=== PATIENT | female | born 1975 | race Hispanic/Latino ===

== ENCOUNTER → 2021-05-02 | Outpatient (CLI) | payer OTHER | END | disposition home or self-care (01) | LOC: SHCH 14:40 | PROVIDERS: ATTEND Internal Medicine Cardiovascular Disease | DX: R00.2 Palpitations (principal) | CPT/HCPCS: 93306; 93356 ==

== ENCOUNTER 2021-07-09 13:11 | Emergency (ER) | payer OTHER ==
[~2021-07-09] VITALS: Ht 149.9 cm; Wt 69.9 kg
[2021-07-09 13:53] LABS: BASOPHILS % (AUTO) 0.6 % (0.0-5.0); EOSINOPHILS % (AUTO) 1.2 % (0.0-8.0); HEMATOCRIT 41.7 % (36-48); LYMPHOCYTES % (AUTO) 27.3 % (21.0-51.0); MEAN CORPUSCULAR HEMOGLOBIN 31.7 pg (27.0-33.0); MEAN CORPUSCULAR HGB CONC 33.1 g/dL (32.0-36.0); MEAN CORPUSCULAR VOLUME 95.6 fL (79-99); NEUTROPHILS % (AUTO) 62.6 % (40.0-77.0); PLATELET COUNT (AUTO) 294 K/uL (130-400); RED BLOOD CELL COUNT(AUTO) 4.36 MIL/uL (4.00-5.50); RED CELL DISTRIBUTION WIDTH 14.1 % (11.0-15.5); WHITE BLOOD COUNT (AUTO) 7.7 K/uL (4.8-10.8)
[2021-07-09 13:58] LABS: APPEARANCE,URINE Clear (CLEAR); BILIRUBIN,URINE Negative (NEGATIVE); COLOR,URINE Yellow (YELLOW); GLUCOSE, URINE (UA) Negative (NEGATIVE); KETONES,URINE Negative (NEGATIVE); LEUKOCYTE ESTERASE ,URINE Trace (NEGATIVE); NITRATE,URINE Negative (NEGATIVE); OCCULT BLOOD,URINE Negative (NEGATIVE); PH,URINE 5.5 (5.0-8.0); PROTEIN,URINE Negative (NEGATIVE); UROBILINOGEN,URINE 0.2 mg/dL (0.2-1.0)
[2021-07-09 13:59] LABS: CREATININE 0.8 mg/dL (0.5-1.5); POTASSIUM 4.4 mmol/L (3.5-5.1)
[2021-07-09 14:04] LABS: ALBUMIN 3.6 g/dL (3.5-5.0); BILIRUBIN,TOTAL 0.2 mg/dL (0.2-1.0); TOTAL PROTEIN, SERUM 6.9 g/dL (6.0-8.3)
[2021-07-09 14:34] LABS: BACTERIA,URINE Few /HPF (None Seen); MUCUS,URINE Moderate LPF (None Seen); SQUAMOUS EPITHELIAL CELL,UR Few /HPF (0-2)
[2021-07-09 15:30] VITALS: BP 128/84
== END 2021-07-09 16:47 | disposition left against medical advice (07) ==
LOC: EDH 13:11
DX: R00.2 Palpitations (principal); Z53.21 Procedure and treatment not carried out due to patient leaving prior to being seen by health care provider
CPT/HCPCS: 36415; 80053; 81001; 81025; 85025

== ENCOUNTER → 2021-08-19 | Outpatient (CLI) | payer OTHER | END | disposition home or self-care (01) | LOC: SLP 21:41 | PROVIDERS: ATTEND Internal Medicine Cardiovascular Disease | DX: G47.33 Obstructive sleep apnea (adult) (pediatric) (principal) | CPT/HCPCS: 95810 ==

== ENCOUNTER → 2021-08-26 | Outpatient (CLI) | payer OTHER ==
[~2021-08-26] MED LIST: IBUP-2077 PO; LEVO750T46 PO
== END | disposition home or self-care (01) ==
LOC: SLP 21:19
PROVIDERS: ATTEND Internal Medicine Cardiovascular Disease
DX: G47.33 Obstructive sleep apnea (adult) (pediatric) (principal)
CPT/HCPCS: 95811

== ENCOUNTER 2021-09-02 20:02 | Emergency (ER) | payer OTHER ==
[~2021-09-02] VITALS: Ht 149.9 cm; Wt 68.0 kg
[2021-09-02 20:57] LABS: BASOPHILS % (AUTO) 0.3 % (0.0-5.0); EOSINOPHILS % (AUTO) 0.9 % (0.0-8.0); HEMATOCRIT 33.4 % (36-48); LYMPHOCYTES % (AUTO) 24.2 % (21.0-51.0); MEAN CORPUSCULAR HEMOGLOBIN 31.4 pg (27.0-33.0); MEAN CORPUSCULAR HGB CONC 34.7 g/dL (32.0-36.0); MEAN CORPUSCULAR VOLUME 90.5 fL (79-99); MONOCYTES % (AUTO) 7.2 % (3.0-13.0); PLATELET COUNT (AUTO) 363 K/uL (130-400); RED BLOOD CELL COUNT(AUTO) 3.69 MIL/uL (4.00-5.50); RED CELL DISTRIBUTION WIDTH 13.2 % (11.0-15.5); WHITE BLOOD COUNT (AUTO) 11.6 K/uL (4.8-10.8)
[2021-09-02 21:12] LABS: APPEARANCE,URINE Clear (CLEAR); BILIRUBIN,URINE Negative (NEGATIVE); COLOR,URINE Yellow (YELLOW); GLUCOSE, URINE (UA) Negative (NEGATIVE); KETONES,URINE Negative (NEGATIVE); LEUKOCYTE ESTERASE ,URINE Moderate (NEGATIVE); NITRATE,URINE Negative (NEGATIVE); OCCULT BLOOD,URINE Negative (NEGATIVE); PH,URINE >=9.0 (5.0-8.0); PROTEIN,URINE Negative (NEGATIVE)
[2021-09-02 21:14] LABS: ALBUMIN 3.2 g/dL (3.5-5.0); BILIRUBIN,TOTAL 0.3 mg/dL (0.2-1.0); TOTAL PROTEIN, SERUM 6.7 g/dL (6.0-8.3)
[2021-09-02 21:17] LABS: B-TYPE NATRIURETIC PEPTIDE 50 pg/mL (0-100)
[2021-09-02 21:20] LABS: RBC,URINE 0-1 /HPF (0-1)
[2021-09-02 21:21] LABS: BACTERIA,URINE Few /HPF (None Seen); SQUAMOUS EPITHELIAL CELL,UR Few /HPF (0-2); TRANSITIONAL EPI CELLS,URINE Few /HPF (None Seen); TRICHOMONAS,URINE Few /LPF (None Seen)
[2021-09-02] MEDS ORDERED: IOHEXOL 350 MG/ML 100ML INFUS..BTL IV ONE (21:26)
[2021-09-02] MEDS ORDERED: KETOROLAC 15MG/ML VIAL (15MG/ML) IV ONE (22:00)
[2021-09-02] MEDS ORDERED: ONDANSETRON 4MG INJ IVP ONE (22:00)
[2021-09-02] MEDS ORDERED: KCL 20 MEQ ERTAB PO ONE (22:00)
[2021-09-02] MEDS ORDERED: KETOROLAC 30MG VIAL (30MG/ML) ONE (22:03)
[2021-09-02] MEDS ORDERED: ZOSYN 3.375GM+NS 50ML 50 ML ONE (22:18)
[2021-09-02] MEDS ORDERED: ZOSYN 3.375GM +NS 50ML IV SCH (22:30)
[2021-09-02] MEDS ORDERED: LEVO750T46 PO (23:36)
[2021-09-02] MEDS ORDERED: IBUP-2077 PO (23:36)
[2021-09-03] MEDS ORDERED: IBUPROFEN 800 MG TAB PO ONE
[2021-09-03 00:07] VITALS: BP 134/72
== END 2021-09-03 00:10 | disposition home or self-care (01) ==
LOC: EDH 20:02
DX: J18.9 Pneumonia, unspecified organism (principal); R50.82 Postprocedural fever; Z20.822 Contact with and (suspected) exposure to COVID-19; E78.00 Pure hypercholesterolemia, unspecified; F41.9 Anxiety disorder, unspecified; F32.A Depression, unspecified; Z90.710 Acquired absence of both cervix and uterus; Z88.6 Allergy status to analgesic agent; Z79.899 Other long term (current) drug therapy; Z98.890 Other specified postprocedural states
CPT/HCPCS: 36415; 71045; 71275; 74177; 80053; 81001; 83605; 83880; 84145; 84484; 85025; 85378; 87040 ×2; 87088; 87635; 93005; 96365; 96366; 96375; 99285; C9803; J1885; J2405; J2543; Q9967

== ENCOUNTER 2021-09-08 00:33 | Emergency (ER) | payer OTHER ==
[~2021-09-08] VITALS: Ht 149.9 cm; Wt 69.9 kg
[2021-09-08] MEDS ORDERED: LIDOCAINE HCL 2% JELLY 5 ML ONE (01:07)
[2021-09-08] MEDS ORDERED: LIDOCAINE HCL 2% JELLY 5 ML TP ONE (01:30)
[2021-09-08] MEDS ORDERED: LACT10SO5 PO (02:01)
[2021-09-08 02:09] VITALS: BP 120/85
== END 2021-09-08 02:08 | disposition home or self-care (01) ==
LOC: EDH 00:33
DX: K56.41 Fecal impaction (principal); Z88.5 Allergy status to narcotic agent; Z79.1 Long term (current) use of non-steroidal anti-inflammatories (NSAID)

== ENCOUNTER 2023-04-21 10:58 | Emergency (ER) | payer OTHER ==
[~2023-04-21] VITALS: Ht 149.9 cm; Wt 68.0 kg
[~2023-04-21 10:58] MED LIST changes: +LACT10SO5 PO; -LEVO750T46 PO; +LEVO750T68 PO
[2023-04-21 11:27] LABS: HEMATOCRIT 39.8 % (36-48); MEAN CORPUSCULAR HEMOGLOBIN 30.4 pg (27.0-33.0); MEAN CORPUSCULAR HGB CONC 33.9 g/dL (32.0-36.0); MEAN CORPUSCULAR VOLUME 89.6 fL (79-99); RED BLOOD CELL COUNT(AUTO) 4.44 MIL/uL (4.00-5.50); WHITE BLOOD COUNT (AUTO) 5.4 K/uL (4.8-10.8)
[2023-04-21 11:37] LABS: HCG,QUALITATIVE URINE NEGATIVE (NEGATIVE)
[2023-04-21 11:38] LABS: AMPHET/METH SCREEN,URINE NEGATIVE (NEGATIVE); BARBITURATE SCREEN, URINE NEGATIVE (NEGATIVE); BENZODIAZEPINES SCREEN,URINE NEGATIVE (NEGATIVE); CANNABINOID SCREEN,URINE POSITIVE (NEGATIVE); COCAINE SCREEN,URINE NEGATIVE (NEGATIVE); OPIATE SCREEN,URINE NEGATIVE (NEGATIVE); PHENCYCLIDINE SCREEN,URINE NEGATIVE (NEGATIVE)
[2023-04-21 11:46] LABS: ALBUMIN 3.7 g/dL (3.5-5.0); CREATININE 0.8 mg/dL (0.5-1.5); POTASSIUM 3.8 mmol/L (3.5-5.1); TOTAL PROTEIN, SERUM 7.3 g/dL (6.0-8.3)
[2023-04-21 11:56] LABS: APPEARANCE,URINE CLEAR (CLEAR); BILIRUBIN,URINE NEGATIVE (NEGATIVE); COLOR,URINE COLORLESS (YELLOW); GLUCOSE, URINE (UA) NEGATIVE (NEGATIVE); KETONES,URINE NEGATIVE (NEGATIVE); LEUKOCYTE ESTERASE ,URINE NEGATIVE Leu/uL (NEGATIVE); NITRATE,URINE NEGATIVE (NEGATIVE); OCCULT BLOOD,URINE NEGATIVE (NEGATIVE); PROTEIN,URINE NEGATIVE (NEGATIVE); UROBILINOGEN,URINE 0.2 mg/dL (0.2-1.0)
[2023-04-21] MEDS ORDERED: ONDANSETRON ODT 4MG TAB SL ONE (13:00)
[2023-04-21] MEDS ORDERED: DICYCLOMINE HCL 10 MG/5 ML ML PO SCH (13:00)
[2023-04-21] MEDS ORDERED: MAG/ALUM/SIMETH 30 ML UDCUP PO ONE (13:00)
[2023-04-21 14:31] VITALS: BP 135/72; PULSE 63; RESP 19; O2SAT 99
== END 2023-04-21 14:50 | disposition home or self-care (01) ==
LOC: EDH 10:58
DX: R10.13 Epigastric pain (principal); R23.2 Flushing; E78.00 Pure hypercholesterolemia, unspecified; Z88.5 Allergy status to narcotic agent; Z90.49 Acquired absence of other specified parts of digestive tract
CPT/HCPCS: 36415; 80053; 80305; 81003; 81025; 83690; 84484; 85027; 93005

== ENCOUNTER 2023-06-12 11:03 | Emergency (ER) | payer OTHER ==
[~2023-06-12] VITALS: Ht 149.9 cm; Wt 66.2 kg
[2023-06-12] MEDS ORDERED: CYCL10TA16 PO (12:05)
[2023-06-12] MEDS ORDERED: IBUP-2070 PO (12:05)
[2023-06-12] MEDS ORDERED: KETOROLAC 60 MG VIAL (30MG/ML) IM ONE (12:30)
[2023-06-12] MEDS ORDERED: CYCLOBENZAPRINE HCL 10 MG TABLET PO ONE (12:30)
[2023-06-12 12:31] VITALS: BP 137/82; PULSE 89; RESP 18; O2SAT 97
== END 2023-06-12 12:32 | disposition home or self-care (01) ==
LOC: EDH 11:03
DX: S63.591A Other specified sprain of right wrist, initial encounter (principal); E78.00 Pure hypercholesterolemia, unspecified; Z79.899 Other long term (current) drug therapy; Z98.890 Other specified postprocedural states; Z90.49 Acquired absence of other specified parts of digestive tract; Z90.710 Acquired absence of both cervix and uterus; Z88.5 Allergy status to narcotic agent; X58.XXXA Exposure to other specified factors, initial encounter; Y93.89 Activity, other specified; Y92.89 Other specified places as the place of occurrence of the external cause; Y99.8 Other external cause status
CPT/HCPCS: 99283; 96372; 73110; J1885